=== PATIENT | male | born 1975 | race Caucasian/White ===

== ENCOUNTER → 2016-10-18 | Outpatient (CLI) | payer BC ==
[2016-10-19 08:32] VITALS: BP 137/92
== END ==
LOC: MHUC 18:31
PROVIDERS: ATTEND Physician Assistant Medical
DX: K04.7 Periapical abscess without sinus (principal)
CPT/HCPCS: 99212

== ENCOUNTER 2016-10-20 00:02 | Emergency (ER) | payer BC ==
[~2016-10-20] VITALS: Ht 170.2 cm; Wt 90.9 kg
[2016-10-20] MEDS ORDERED: cefTRIAXone 1 GM (ROCEPHIN) VIAL IM ONE (00:25)
[2016-10-20] MEDS ORDERED: KETOROLAC 60 MG/2 ML (TORADOL) VIAL IM ONE (00:25)
[2016-10-20] MEDS ORDERED: ED- TRAMADOL 50 MG (ULTRAM) 6 TABLETS/BTL PO ONE ×2 (00:30→00:36)
[2016-10-20] MEDS ORDERED: LIDOCAINE PF 1% (XYLOCAINE) 2 ML VIAL INJ ONE (00:30)
[2016-10-20 01:33] VITALS: BP 137/86
== END 2016-10-20 01:00 | disposition home or self-care (01) ==
LOC: ED 00:04
DX: K08.89 Other specified disorders of teeth and supporting structures (principal)
CPT/HCPCS: 96372; 99282; J0696; J1885; J2001; 99283

== ENCOUNTER → 2017-01-23 | Outpatient (REF) | payer BC ==
[~2017-01-23] MED LIST: AMOX1TAB12 PO; IRBE300T18 PO; MECL12.518 PO; PRM25T PO; TRM50T PO
[2017-01-23 18:00] LABS: BASOPHILS % (AUTO) 0 % (0-2); EOSINOPHILS # (AUTO) 0.2 10^3uL; EOSINOPHILS % (AUTO) 4 % (0-4); LYMPHOCYTES # (AUTO) 1.8 X10^3; MEAN CORPUSCULAR HEMOGLOBIN 28.4 PG (26.0-34.0); MEAN CORPUSCULAR HGB CONC 34.3 g/dL (31.0-37.0); MEAN CORPUSCULAR VOLUME 83 FL (80-100); MEAN PLATELET VOLUME 9.4 FL (6.0-9.5); MONOCYTES # (AUTO) 0.7 X10^3; MONOCYTES % (AUTO) 13 % (3-11); NEUTROPHILS # (AUTO) 2.6 X10^3; NEUTROPHILS % (AUTO) 48 % (51-67); PLATELET COUNT 282 10^3uL (150-450); WHITE BLOOD COUNT 5.31 10^3uL (4.0-11.0)
[2017-01-23 18:06] LABS: ALBUMIN 4.5 g/dL (3.4-5.0); ALKALINE PHOSPHATASE 97 U/L (38-126); ANION GAP 15.8 MEQ/L (3-15); BUN/CREATININE RATIO 14 (10-20); CALCULATED IONIZED CALCIUM 4.1 mg/dL (3.8-4.6); TOTAL PROTEIN 7.9 g/dL (6.4-8.5)
[2017-01-23 18:37] LABS: BILIRUBIN,URINE Negative (Negative); CLARITY,URINE Clear; COLOR,URINE Yellow; GLUCOSE, URINE (UA) Negative (Negative); LEUKOCYTE ESTERASE, URINE Negative (Negative); UROBILINOGEN,URINE 0.2 mg/dL (0.2-1.0)
== END ==
LOC: LAB 17:20
PROVIDERS: ATTEND Nurse Practitioner Family
DX: I10 Essential (primary) hypertension (principal); E78.2 Mixed hyperlipidemia; R40.0 Somnolence
CPT/HCPCS: 80053; 80061; 81003; 84403; 84443; 85025